=== PATIENT | male | born 2000 | race Caucasian/White ===

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

== ENCOUNTER 2022-01-05 19:06 | Emergency (ER) | payer OTHER, BC | END 2022-01-05 21:56 | disposition home or self-care (01) | LOC: JD.ED 19:06 | DX: S16.1XXA Strain of muscle, fascia and tendon at neck level, initial encounter (principal); S09.90XA Unspecified injury of head, initial encounter; Z88.0 Allergy status to penicillin; V57.5XXA Driver of pick-up truck or van injured in collision with fixed or stationary object in traffic accident, initial encounter | CPT/HCPCS: 70450; 70450-26; 71045; 71045-26; 72125; 72125-26; 99284-25 ==

== ENCOUNTER 2022-01-24 22:00 | Emergency (ER) | payer OTHER, BC ==
[2022-01-24] MEDS ORDERED: Acetaminophen 325 MG Tab PO ONE (23:09)
== END 2022-01-24 23:33 | disposition home or self-care (01) ==
LOC: JD.ED 22:00
DX: S20.212A Contusion of left front wall of thorax, initial encounter (principal); F17.210 Nicotine dependence, cigarettes, uncomplicated; Z88.0 Allergy status to penicillin; Z79.899 Other long term (current) drug therapy; V48.9XXA Unspecified car occupant injured in noncollision transport accident in traffic accident, initial encounter; Y92.410 Unspecified street and highway as the place of occurrence of the external cause
CPT/HCPCS: 36415; 71101; 85025; 99285; A9270